=== PATIENT | male | born 2000 | race Caucasian/White ===

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

== ENCOUNTER 2022-02-06 09:29 | Emergency (ER) | payer BC ==
[2022-02-06 09:37] VITALS: TEMP 98
[2022-02-06] MEDS ORDERED: IBUPROFEN 400 MG TAB PO STA (09:45)
--- NOTE | 2022-02-06 10:10 | XR ---
EXAMINATION TYPE: XR toes LT DATE OF EXAM: 02/06/2022 10:01 AM INDICATION: Patient age:Male; 21 years old; Reason for study: L big toe injury; COMPARISON: None TECHNIQUE: The left toe was examined in the frontal and lateral projections. FINDINGS: No evidence of any acute osseous pathology. No evidence of soft tissue swelling. Joints are preserve d. IMPRESSION: No evidence of acute fracture.
--- NOTE | 2022-02-06 10:24 | ED ---
Lower Extremity Injury HPI - General Chief Complaint: Extremity Injury, Lower Stated Complaint: Broken toe Time Seen by Provider: 02/06/22 09:30 Source: patient Mode of arrival: ambulatory Limitations: no limitations - History of Present Illness Initial Comments: Patient is a 21-year-old male presenting with chief complaint of left great toe pain. Patient states that 2 days ago he jumped and landed on his great toe and flexion. He states that the DIP joint is where the majority of the pain is located. He still is full range of motion, sensation, strength. He admits to some pain with ambulation, states that he does not step heel-to-toe but rather picks his foot straight up and down. He denies any numbness, tingling, weakness, redness, swelling, warmth, fever, chills, nausea, vomiting, foot pain, inability to ambulate or bear weight. - Related Data Previous Rx's Medication Instructions Recorded Acetaminophen-Codeine 300-30mg 1 tab PO Q6H PRN #15 tablet 08/28/17 [Tylenol #3] Ibuprofen 400 mg PO Q6HR #30 tablet 08/28/17 Allergies Allergy/AdvReac Type Severity Reaction Status Date / Time venom-honey bee Allergy Swelling Verified 02/06/22 09:37 [bee venom (honey bee)] Review of Systems ROS Statement: Those systems with pertinent positive or pertinent negative responses have been documented in the HPI. ROS Other: All systems not noted in ROS Statement are negative. Past Medical History Past Medical History: No Reported History Additional Past Medical History / Comment(s): Negative health history History of Any Multi-Drug Resistant Organisms: None Reported Past Surgical History: No Surgical Hx Reported Past Psychological History: No Psychological Hx Reported Past Alcohol Use History: None Reported Past Drug Use History: None Reported - Past Family History Father Family Medical History: No Reported History General Exam Limitations: no limitations General appearance: alert, in no apparent distress Head exam: Present: atraumatic, normocephalic, normal inspection Eye exam: Present: normal appearance, EOMI. Absent: scleral icterus Neck exam: Present: normal inspection Left Foot/Toe exam: Present: normal inspection, full ROM, tenderness (Left great toe), ecchymosis (Left great toe). Absent: swelling Neurovascular tendon exam: Present: no vascular compromise Gait: antalgic Neurological exam: Present: alert, oriented X3, CN II-XII intact Psychiatric exam: Present: normal affect, normal mood Skin exam: Present: warm, dry, intact, normal color. Absent: rash Course Vital Signs 02/06/22 02/06/22 09:35 10:42 Temperature 98 F Pulse Rate 63 70 Respiratory 20 18 Rate Blood Pressure 104/65 120/64 O2 Sat by Pulse 98 99 Oximetry Medical Decision Making - Medical Decision Making Patient is a 21-year-old male presenting with chief complaint of left great toe pain. He injured it 2 days ago after landing on the toe and flexion. He admits to pain with ambulating. On examination he has full range of motion, sensation, strength, good cap refill. X-ray series no fracture or dislocation. This is likely a sprain of the great toe. Patient is offered a postop shoe for support. Take Motrin and Tylenol seated for pain control. Rest, ice, elevate as needed for pain control. Follow-up with PCP this week. Report back to ER if any new or worsening symptoms. I discussed return parameters alarm symptoms. Answered all questions. Patient conveyed verbal understanding and agreed to the plan. My attending is Dr. Arana. Disposition Clinical Impression: Toe sprain Disposition: HOME SELF-CARE Condition: Good Instructions (If sedation given, give patient instructions): Arthralgia (ED) Additional Instructions: Follow-up with PCP this week. Report back to ER with any new or worsening symptoms. Take Motrin and Tylenol as needed for pain control. Advised rest, ice, elevation for symptomatic management. Is patient prescribed a controlled substance at d/c from ED?: No Referrals: Jas Yoon MD [Primary Care Provider] - 1-2 days Time of Disposition: 10:22
[2022-02-06 10:43] VITALS: BP 120/64; PULSE 70; RESP 18
== END 2022-02-06 10:43 | disposition home or self-care (01) ==
LOC: EC 09:29
DX: S93.502A Unspecified sprain of left great toe, initial encounter (principal); Z91.030 Bee allergy status; X50.9XXA Other and unspecified overexertion or strenuous movements or postures, initial encounter; Y93.39 Activity, other involving climbing, rappelling and jumping off
CPT/HCPCS: 99283